=== PATIENT | male | born 1970 | race Caucasian/White ===

== ENCOUNTER → 2020-02-12 | Outpatient (CLI) | payer BC ==
--- NOTE | 2020-02-12 13:00 | MRI ---
Study: MRI of the Left Ankle. Indication: ACHILLES TENDON INJURY Technique: Multiplanar, multi sequence MRI of the left ankle was obtained without intravenous contrast. Comparison: None. Findings: Thickening of the critical zone of the Achilles tendon measuring up to 11 mm AP indicating tendinosis. No fluid filled tear. Mild enthesophyte formation at the tendon insertion. Trace retrocalcaneal bursal fluid. Plantar fascia not included in its entirety within the distal view. No appreciable rupture. No acute fracture or talar coalition. Mild osteoarthritis dorsal margin of the calcaneocuboid joint. Mild tenosynovitis medial tendons with insertional posterior tibialis tendinosis. Anterior tendons intact. Tendinosis of the peroneus brevis brevis tendon inferior to the lateral malleolus without tear. Prior full-thickness tear anterior talofibular ligament with no intact fibers. Prior sprains of the anterior/posterior tibiofibular ligaments, calcaneofibular ligament, deep deltoid ligament. Ankle mortise alignment normal. Talar dome intact. Impression: Achilles tendinosis and thickening without tear. Prior full-thickness tear anterior talofibular ligament as well as multiple prior medial and lateral ankle ligament sprains as above. Additional findings as above. Electronically signed by: Piyush Merrill MD 02/12/2020 12:59 PM CDT
== END ==
LOC: MRI 09:53
PROVIDERS: ATTEND Nurse Practitioner Family
DX: M76.62 Achilles tendinitis, left leg (principal); S93.492A Sprain of other ligament of left ankle, initial encounter

== ENCOUNTER → 2020-03-28 | Outpatient (CLI) | payer BC ==
--- NOTE | 2020-04-01 08:49 | RAD ---
EXAM DESCRIPTION: Foot,Right 2 Views CLINICAL HISTORY: 49 years Male, PUNCTURE WOUND COMPARISON: None. FINDINGS: Two views of the right foot show no acute fracture or malalignment. No radiopaque foreign body or soft tissue gas. IMPRESSION: Negative exam. Electronically signed by: Luis Multani MD 04/01/2020 8:47 AM CDT
== END ==
LOC: RAD 14:46
PROVIDERS: ATTEND Nurse Practitioner Family
DX: S91.331A Puncture wound without foreign body, right foot, initial encounter (principal)

== ENCOUNTER → 2020-08-01 | Outpatient (CLI) | payer BC ==
--- NOTE | 2020-08-03 09:14 | MRI ---
MRI left ankle without contrast INDICATION: Ankle pain Achilles tendinitis TECHNIQUE: Noncontrast MR imaging left ankle standard protocol FINDINGS: The anterior talofibular ligament is absent from a previous disruption non acute. Mild tendinopathy distal posterior tibialis. There is flattening of the peroneus brevis but no split rupture or dislocation with interstitial tendinosis and fissuring distally. There is mild tendinopathy of the Achilles tendon with rounded biconvex morphology. Indistinct calcaneofibular ligament likely from a previous ankle sprain as well. Mild tenosynovitis of the peroneals, posterior tibialis and flexor tendons. The tibialis anterior and extensor tendons are intact. Diffuse subcutaneous edema throughout the ankle nonspecific. There is irregular ossification and hypertrophy of the anterior process of the calcaneus indicating mild degenerative/posttraumatic changes. Minimal osteoarthrosis of the ankle and midfoot. Minimal degenerative change of the subtalar compartments. No advanced arthrosis. Small ossification or fat along the distal Achilles likely small enthesophyte. No active inflammation in this area. Trace retrocalcaneal bursal fluid without florid bursitis. Talar dome is intact. Mortise is congruent. IMPRESSION: Achilles tendinosis without rupture Previous ankle sprains with absent anterior talofibular ligament and indistinct calcaneofibular ligament from prior ligament tears Tendinopathy flattening and fissuring peroneus brevis Tendinopathy distal posterior tibialis Multifocal mild tenosynovitis. Mild osteoarthrosis of the foot and ankle Electronically signed by: Nikhil Martinez MD 08/03/2020 9:12 AM [facility]
== END ==
LOC: MRI 07:07
PROVIDERS: ATTEND Orthopaedic Surgery
DX: M76.62 Achilles tendinitis, left leg (principal); S93.412S Sprain of calcaneofibular ligament of left ankle, sequela; M65.872 Other synovitis and tenosynovitis, left ankle and foot; M19.072 Primary osteoarthritis, left ankle and foot

== ENCOUNTER → 2020-09-16 | Outpatient (CLI) | payer BC ==
--- NOTE | 2020-09-17 11:07 | US ---
EXAM DESCRIPTION: Abdomen,Complete: Ultrasound. CLINICAL HISTORY: 49 years Male RUQ PAIN COMPARISON: None Available. TECHNIQUE: Transabdominal scanning: grayscale and Doppler modes.. Technically difficult study due to large patient body habitus. FINDINGS: Gallbladder: normal size, shape, echogenicity; no intraluminal stones or sludge. No fluid around the gallbladder. No wall thickening. 2.6 mm. Non-tender with transducer pressure. Common bile duct: caliber 5.8 mm within normal limits. Liver: Heterogeneously increased echogenicity; contour liver capsule smooth where seen. No fluid around the liver. Intrahepatic biliary ducts normal caliber. Doppler hepatopedal flow and normal caliber portal vein 10.5 mm.. Long axis right lobe 19.9 cm. Pancreas: Limited views of the pancreas; grossly normal size and echogenicity. Duct not seen. Complete abdominal aorta: Normal caliber from the proximal segment to the distal bifurcation.. IVC: visualized and normal caliber. Right kidney: long axis measures 12.4 cm; volume 209.3 mL. Cortical echogenicity is normal. Normal cortical thickness. No echogenic stones; no hydronephrosis. Left kidney: long axis measures 12.6 cm; volume 325.3 mL. Cortical echogenicity is normal. Normal cortical thickness. 2.7 x 2.3 cm anechoic cyst in the upper pole of the kidney medial cortex with circumscribed margin and posterior acoustic enhancement. No echogenic stones; no hydronephrosis. Spleen: Normal. No focal lesions.. 12.0 cm long axis. Other: None. IMPRESSION: 1. Technically difficult study due to patient large body habitus. Moderate hepatomegaly with steatosis. Physiologic ducts and vascularity. Splenic capsule and no ascites. No gross abnormalities of the pancreas with limited visualization. Spleen is negative. 2. Bilateral kidneys are enlarged but no hydronephrosis or perinephric fluid. No echogenic stones. Normal cortical echogenicity. 3. Gallbladder and common bile duct are unremarkable. Normal caliber of the abdominal aorta and IVC. Electronically signed by: Alcides Nassar MD 09/17/2020 11:05 AM [facility] [email or web address]
== END ==
LOC: US 13:15
PROVIDERS: ATTEND Nurse Practitioner Family
DX: R10.11 Right upper quadrant pain (principal); R16.0 Hepatomegaly, not elsewhere classified; N28.81 Hypertrophy of kidney